=== PATIENT | male | born 1980 | race Caucasian/White ===

== ENCOUNTER → 2018-04-24 | Outpatient (CLI) | payer MEDICARE, MEDICAID ==
[2018-04-24 08:23] LABS: ABSOLUTE BASOPHILS # (AUTO) 0.1 10^3/uL (0.0-0.2); ABSOLUTE EOSINOPHILS # (AUTO) 0.4 10^3/uL (0.0-0.6); ABSOLUTE LYMPHOCYTES (AUTO) 2.4 10^3/uL (0.5-4.7); ABSOLUTE MONOCYTES (AUTO) 1.1 10^3/uL (0.1-1.4); EOSINOPHILS % (AUTO) 4.4 % (0-6); HEMOGLOBIN 13.9 g/dL (13.5-17.0); LYMPHOCYTES % (AUTO) 26.7 % (13-45); MEAN CORPUSCULAR HGB CONC 35.7 g/dL (32.0-36.0); MEAN CORPUSCULAR VOLUME 98 fl (80-97); MONOCYTES % (AUTO) 12.6 % (3-13); PLATELET COUNT 302 10^3/uL (150-450); RED BLOOD COUNT 3.99 10^6/uL (4.35-5.55); RED CELL DISTRIBUTION WIDTH 13.5 % (11.5-14.0); SEGMENTED NEUTROPHILS % (AUTO) 55.3 % (42-78); TOTAL CELLS COUNTED % (AUTO) 100 %; WHITE BLOOD COUNT 9.1 10^3/uL (4.0-10.5)
[2018-04-24 08:54] LABS: ALANINE AMINOTRANSFERASE 21 U/L (21-72); ALBUMIN 4.7 g/dL (3.5-5.0); ALKALINE PHOSPHATASE 62 U/L (38-126); ANION GAP 14 (5-19); ASPARTATE AMINO TRANSFERASE 17 U/L (17-59); BILIRUBIN,DIRECT 0.3 mg/dL (0.0-0.4); BILIRUBIN,TOTAL 0.3 mg/dL (0.2-1.3); BLOOD UREA NITROGEN 20 mg/dL (7-20); CALCIUM 9.5 mg/dL (8.4-10.2); CARBON DIOXIDE 24 mmol/L (22-30); CHLORIDE 106 mmol/L (98-107); CHOLESTEROL 157.71 mg/dL (0-200); GLUCOSE 91 mg/dL (75-110); LITHIUM 0.4 mEq/L (0.6-1.2); POTASSIUM 4.3 mmol/L (3.6-5.0); SODIUM 143.7 mmol/L (137-145); TOTAL PROTEIN 8.1 g/dL (6.3-8.2); TRIGLYCERIDES 348 mg/dL (<150)
[2018-04-24 09:05] LABS: DIRECT LDL 58 mg/dL (<100)
[2018-04-24 09:06] LABS: VLDL CHOLESTEROL 69.6 mg/dL (10-31)
== END ==
LOC: OD 07:26
PROVIDERS: ATTEND Internal Medicine
DX: F31.9 Bipolar disorder, unspecified (principal); E78.5 Hyperlipidemia, unspecified; K21.9 Gastro-esophageal reflux disease without esophagitis; R53.83 Other fatigue
CPT/HCPCS: 36415; 80053; 80061; 80178; 84443; 85025

== ENCOUNTER 2020-08-20 16:50 | Emergency (ER) | payer MEDICARE, MEDICAID ==
[2020-08-20] MEDS ORDERED: TETRACAINE HCL 0.5% OPH SOLN 4 ML OS ONE (18:16)
--- NOTE | 2020-08-20 18:22 | ER Document Report ---
ED Medical Screen (RME) - General Chief Complaint: Eye Injury Stated Complaint: LEFT EYE INJURY/PAIN Time Seen by Provider: 08/20/20 18:12 Primary Care Provider: ANTON STOUT MD [Primary Care Provider] - Follow up as needed TRAVEL OUTSIDE OF THE [place] IN LAST 30 DAYS: No - HPI Notes: Patient is a 39 y/o male who presents with left eye pain after an injury. Patient was at work when he was trying to discard of a cardboard box when the corner hit his left eye around 12PM this afternoon. Patient reports eye redness, pain, and tearing. He does not wear any corrective lenses or contacts. - Related Data Allergies/Adverse Reactions: paliperidone [From Invega] Allergy (Severe, Verified 08/20/20 18:10) stroke like symptoms tramadol HCl [From Ultram] Allergy (Severe, Verified 08/20/20 18:10) Hives ziprasidone HCl [From Geodon] Allergy (Severe, Verified 08/20/20 18:10) severe shaking ziprasidone mesylate [From Geodon] Allergy (Severe, Verified 08/20/20 18:10) severe shaking alprazolam [From Xanax] Allergy (Verified 08/20/20 18:11) Past Medical History - Social History Chew tobacco use (# tins/day): No Frequency of alcohol use: Occasional Drug Abuse: None - Past Medical History Cardiac Medical History: Denies: Hx Coronary Artery Disease, Hx Heart Attack, Hx Hypertension Pulmonary Medical History: Reports: Hx Pneumonia - as Denies: Hx Asthma, Hx Bronchitis, Hx COPD Neurological Medical History: Denies: Hx Cerebrovascular Accident, Hx Seizures Musculoskeltal Medical History: Denies Hx Arthritis Psychiatric Medical History: Reports: Hx Attention Deficit Hyperactivity Disorder, Hx Bipolar Disorder Past Surgical History: Reports: Hx Cholecystectomy, Hx Tonsillectomy - Immunizations Hx Diphtheria, Pertussis, Tetanus Vaccination: Yes - 2009 Physical Exam - Vital signs Vitals: Temp Pulse Resp BP Pulse Ox 98.0 F 69 16 124/75 98 08/20/20 17:13 08/20/20 17:13 08/20/20 17:13 08/20/20 17:13 08/20/20 17:13 - HEENT Conjunctiva: Injected Corrective lenses worn: No Course - Re-evaluation Re-evalutation: I have greeted and performed a rapid initial assessment of this patient. A comprehensive ED assessment and evaluation of the patient, analysis of test re sults and completion of medical decision making process will be conducted by an additional ED providers. - Vital Signs Vital signs: Temp Pulse Resp BP Pulse Ox 98.0 F 69 16 124/75 98 08/20/20 17:13 08/20/20 17:13 08/20/20 17:13 08/20/20 17:13 08/20/20 17:13 Doctor's Discharge - Discharge Referrals: ANTON STOUT MD [Primary Care Provider] - Follow up as needed
[2020-08-20] MEDS ORDERED: TETRACAINE HCL 0.5% OPH SOLN 4 ML ONE (22:31)
[2020-08-20] MEDS ORDERED: HYDROCODONE/ACETAMINOPHEN 5-325 MG (6 TAB/ER DISP) PO PRN (23:12)
--- NOTE | 2020-08-20 23:16 | ER Document Report ---
ED Eye Complaint - General Chief Complaint: Eye Injury Stated Complaint: LEFT EYE INJURY/PAIN Time Seen by Provider: 08/20/20 22:25 Primary Care Provider: [facility] [Provider Group] - Follow up as needed DOV BARR DO [ACTIVE STAFF] - Follow up tomorrow ANTON STOUT MD [Primary Care Provider] - Follow up as needed Mode of Arrival: Ambulatory Information source: Patient Notes: Patient states that he was at work around lunchtime and got hit in the eye with a piece of cardboard. Patient does not wear contact lenses or glasses. Patient complains of light sensitivity, eye pain and tearing since then. TRAVEL OUTSIDE OF THE [place] IN LAST 30 DAYS: No - HPI Onset: This afternoon Occurred at: Work Quality of pain: Burning Pain Level: 5 Exposure: Direct trauma Safety glasses worn: No Contact lenses worn: No Associated symptoms: Burning, Pain, Photophobia - Related Data Allergies/Adverse Reactions: paliperidone [From Invega] Allergy (Severe, Verified 08/20/20 18:10) stroke like symptoms tramadol HCl [From Ultram] Allergy (Severe, Verified 08/20/20 18:10) Hives ziprasidone HCl [From Geodon] Allergy (Severe, Verified 08/20/20 18:10) severe shaking ziprasidone mesylate [From Geodon] Allergy (Severe, Verified 08/20/20 18:10) severe shaking alprazolam [From Xanax] Allergy (Verified 08/20/20 18:11) Past Medical History - General Information source: Patient - Social History Smoking Status: Current Every Day Smoker Chew tobacco use (# tins/day): No Frequency of alcohol use: Occasional Drug Abuse: None Occupation: Retail Family History: Reviewed & Not Pertinent Patient has homicidal ideation: No - Past Medical History Cardiac Medical History: Denies: Hx Coronary Artery Disease, Hx Heart Attack, Hx Hypertension Pulmonary Medical History: Reports: Hx Pneumonia - as infant Denies: Hx Asthma, Hx Bronchitis, Hx COPD Neurological Medical History: Denies: Hx Cerebrovascular Accident, Hx Seizures Musculoskeletal Medical History: Denies Hx Arthritis Psychiatric Medical History: Reports: Hx Attention Deficit Hyperactivity Disorder, Hx Bipolar Disorder Past Surgical History: Reports: Hx Cholecystectomy, Hx Tonsillectomy - Immunizations Hx Diphtheria, Pertussis, Tetanus Vaccination: Yes - 2009 Review of Systems - Review of Systems Constitutional: No symptoms reported EENT: Eye pain, Blurred vision, Tearing Cardiovascular: No symptoms reported Respiratory: No symptoms reported Gastrointestinal: No symptoms reported Genitourinary: No symptoms reported Male Genitourinary: No symptoms reported Musculoskeletal: No symptoms reported Skin: No symptoms reported Hematologic/Lymphatic: No symptoms reported Neurological/Psychological: No symptoms reported Physical Exam - Vital signs Vitals: Temp Pulse Resp BP Pulse Ox 98.0 F 69 16 124/75 98 08/20/20 17:13 08/20/20 17:13 08/20/20 17:13 08/20/20 17:13 08/20/20 17:13 - General General appearance: Appears well, Alert In distress: None - HEENT Head: Normocephalic. No: Atraumatic, Abrasions Eyes: Tears. No: Pale conjunctiva, Periorbital ecchymosis, Periorbital edema Conjunctiva: Normal Cornea: Corneal abrasion, Flourescein stain uptake. No: Corneal ulcer, Dendrite, Embedded foreign body, Opacified, Superficial foreign body Extraocular movements intact: Yes Eyelashes: Normal Pupils: PERRL Visual acuity- Right eye: 20/15 Visual acuity- Left eye: 0 Visual acuity- Both eyes: 0 Corrective lenses worn: No Neck: Normal - Respiratory Respiratory status: No respiratory distress Chest status: Nontender Breath sounds: Normal Chest palpation: Normal - Cardiovascular Rhythm: Regular Heart sounds: S1 appreciated, S2 appreciated Murmur: No - Back Back: Normal - Extremities General upper extremity: Normal inspection, Normal ROM General lower extremity: Normal inspection, Normal ROM - Neurological Neuro grossly intact: Yes Charisse Coma Scale Eye Opening: Spontaneous [place] Coma Scale Verbal: Oriented Charisse Coma Scale Motor: Obeys Commands [place] Coma Scale Total: 15 - Psychological Associated symptoms: Agitated - Skin Skin Temperature: Warm Skin Moisture: Dry Skin Color: Normal Course - Re-evaluation Re-evalutation: 08/20/20 23:13 Patient with corneal abrasion to left eye, no foreign body noted. Negative Marek sign. Patient encouraged to follow-up with ophthalmology tomorrow for a follow-up appointment. Discussed worsening symptoms that patient should return immediately for. 08/21/20 03:33 - Vital Signs Vital signs: Temp Pulse Resp BP Pulse Ox 98.6 F 74 16 134/68 H 98 08/20/20 22:45 08/20/20 22:45 08/20/20 22:45 08/20/20 22:45 08/20/20 22:45 Procedures - Eye Procedure Left Fluorescein applied: Left Eyes picture: 1 - corneal abrasion Discharge - Discharge Clinical Impression: Corneal abrasion, left Qualifiers: Encounter type: initial encounter Qualified Code(s): S05.02XA - Injury of conjunctiva and corneal abrasion without foreign body, left eye, initial encounter Condition: Stable Disposition: HOME, SELF-CARE Instructions: Corneal Abrasion ([facility]), Oral Narcotic Medication ([facility]) Additional Instructions: Return immediately for any new or worsening symptoms Followup with opthamology, call tomorrow to make a followup appointment Instill the erythromycin ointment 1 inch ribbon to the left eye four times a day for the next week. Do not take hydrocodone with your Klonopin, only take one medication or the other to avoid adverse interactions. Referrals: ANTON STOUT MD [Primary Care Provider] - Follow up as needed [facility] [Provider Group] - Follow up as needed DOV BARR DO [ACTIVE STAFF] - Follow up tomorrow
[2020-08-21] MEDS ORDERED: ERYTHROMYCIN 0.5% OPH OINTMENT 3.5 GM (ER DISP) OS SCH
[2020-08-21 02:06] VITALS: BP 134/68
== END 2020-08-20 23:40 | disposition home or self-care (01) ==
LOC: ER 16:50
DX: S05.02XA Injury of conjunctiva and corneal abrasion without foreign body, left eye, initial encounter (principal); W22.8XXA Striking against or struck by other objects, initial encounter; Y99.0 Civilian activity done for income or pay; Z88.8 Allergy status to other drugs, medicaments and biological substances; Z88.6 Allergy status to analgesic agent; F17.200 Nicotine dependence, unspecified, uncomplicated
CPT/HCPCS: 99283; A9270 ×2; J3490